=== PATIENT | female | born 1965 | race Asian ===

== ENCOUNTER → 2016-06-13 | Outpatient (CLI) | payer OTHER | END | disposition home or self-care (01) | LOC: NM 09:00 | DX: D35.1 Benign neoplasm of parathyroid gland (principal) | CPT/HCPCS: A9500 ==

== ENCOUNTER → 2018-08-24 | Outpatient (CLI) | payer OTHER | END | disposition home or self-care (01) | LOC: NM 09:00 | DX: E21.3 Hyperparathyroidism, unspecified (principal) | CPT/HCPCS: A9500 ==